=== PATIENT | male | born 1980 | race Two or more races ===

== ENCOUNTER 2017-10-06 10:44 | Emergency (ER) | payer BC ==
[~2017-10-06] VITALS: Ht 180.3 cm; Wt 88.0 kg
[2017-10-06 11:01] VITALS: Ht 180.3 cm; Wt 88.0 kg
[2017-10-06 13:41] LABS: CALCIUM 9.3 mg/dL (8.5-10.1); CARBON DIOXIDE 28.7 mmol/L (21-32); CHLORIDE SERUM 102 mmol/L (98-107); CREATININE SERUM 1.1 mg/dL (0.7-1.3); GFR1 > 60 mL/min; GLUCOSE SERUM 96 mg/dL (74-106); POTASSIUM SERUM 4.1 mmol/L (3.5-5.1); SODIUM SERUM 140 mmol/L (136-145)
[2017-10-06 13:45] LABS: BASOPHIL % 0.4 % (0-2); PLATELET COUNT 249 x10^3mcL (130-400); RED CELL DISTRIBUTION WIDTH 14.4 % (11.5-14.5)
[2017-10-06 13:46] LABS: ALBUMIN 4.2 g/dL (3.4-5.0); ALKALINE PHOSPHATASE 91 U/L (46-116); ALT/SGPT 105 U/L (16-63); AMYLASE 89 U/L (25-115); AST/SGOT 37 U/L (15-37); BILIRUBIN TOTAL 0.3 mg/dL (0.20-1.00); LIPASE 131 IU/L (73-393); TOTAL PROTEIN, SERUM 8.2 g/dL (6.4-8.2)
[2017-10-06 14:21] LABS: microscopic required? NO
[2017-10-06 14:44] LABS: UA SPECIFIC GRAVITY <=1.005 (1.005-1.035); urine erythrocyte NEGATIVE (NEGATIVE)
[2017-10-06 15:58] VITALS: BP 123/73
== END 2017-10-06 15:58 | disposition home or self-care (01) ==
LOC: ED 10:44
PROVIDERS: Emergency Medicine
DX: K63.89 Other specified diseases of intestine (principal); G43.909 Migraine, unspecified, not intractable, without status migrainosus; Z87.19 Personal history of other diseases of the digestive system
CPT/HCPCS: 83880; J2405; J3010; J7030; Q9967